=== PATIENT | male | born 1965 | race Two or more races ===

== ENCOUNTER 2020-10-24 06:45 | Outpatient (CLI) | payer OTHER | END 2020-10-24 06:51 | disposition home or self-care (01) | LOC: LAB 06:45 | PROVIDERS: ATTEND General Practice | DX: I10 Essential (primary) hypertension (principal); Z87.891 Personal history of nicotine dependence; D64.89 Other specified anemias; E78.2 Mixed hyperlipidemia; E03.8 Other specified hypothyroidism; N40.0 Benign prostatic hyperplasia without lower urinary tract symptoms; R30.0 Dysuria ==